=== PATIENT | female | born 1980 | race Caucasian/White ===

== ENCOUNTER → 2017-11-02 | Outpatient (CLI) | payer OTHER | LOC: BMCIMAGING 09:51 | PROVIDERS: ATTEND Family Medicine | DX: S82.445A Nondisplaced spiral fracture of shaft of left fibula, initial encounter for closed fracture (principal); M77.32 Calcaneal spur, left foot ==

== ENCOUNTER 2017-11-14 07:47 | Day surgery (SDC) | payer OTHER ==
[2017-11-14] MEDS ORDERED: BUPIVACAINE 0.25% 30 ML SDV ONE (07:50)
[2017-11-14] MEDS ORDERED: ceFAZolin 2 GM/DEXTROSE 100 ML IV ONE (08:04)
[2017-11-14] MEDS ORDERED: LR 1,000 ML IV ONE (08:05)
--- NOTE | 2017-11-14 08:15 | PDHPUP ---
History & Physical Update H&P update statement: This history and physical update is based on an assessment of the patient which was completed after admission or registration (within 24 hours), but prior to the surgery/procedure. H&P update: H&P reviewed & patient examined
[2017-11-14] MEDS ORDERED: MIDAZOLAM 2 MG/2 ML VIAL ONE (08:48)
[2017-11-14] MEDS ORDERED: PROPOFOL/EMULSION 500 MG/50 ML BOTTLE IV ONE (08:48)
[2017-11-14] MEDS ORDERED: fentaNYL 100 MCG/2 ML INJ ONE ×2 (08:48→09:58)
[2017-11-14] MEDS ORDERED: DEXAMETHASONE 4 MG/ML VIAL ONE (09:04)
[2017-11-14] MEDS ORDERED: KETOROLAC 30 MG/1 ML SDV ONE (09:04)
[2017-11-14] MEDS ORDERED: RANITIDINE 50 MG/2 ML VIAL ONE (09:04)
[2017-11-14] MEDS ORDERED: LIDOCAINE 2% 5 ML SDV ONE (09:04)
[2017-11-14] MEDS ORDERED: METOCLOPRAMIDE 10 MG/2 ML VIAL ONE (09:04)
[2017-11-14] MEDS ORDERED: ONDANSETRON 4 MG/2 ML VIAL ONE (09:04)
[2017-11-14] MEDS ORDERED: NALOXONE HCL 0.4 MG/ML INJ IVP PRN (09:22)
[2017-11-14] MEDS ORDERED: PROMETHAZINE HCL 25 MG/ML INJ IVP PRN (09:22)
[2017-11-14] MEDS ORDERED: LR 500 ML IV PRN (09:22)
[2017-11-14] MEDS ORDERED: DEXAMETHASONE 4 MG/ML VIAL IVP PRN (09:22)
[2017-11-14] MEDS ORDERED: ACETAMINOPHEN 500 MG TAB PO PRN (09:22)
[2017-11-14] MEDS ORDERED: fentaNYL 100 MCG/2 ML INJ IVP PRN (09:22)
[2017-11-14] MEDS ORDERED: ONDANSETRON 4 MG/2 ML VIAL IVP PRN ×2 (09:22→10:43)
[2017-11-14] MEDS ORDERED: METOCLOPRAMIDE 10 MG/2 ML VIAL IVP PRN (09:22)
[2017-11-14] MEDS ORDERED: HYDROCODONE/APAP 5/325 TAB PO PRN (09:22)
--- NOTE | 2017-11-14 09:22 | PDANEPAE ---
ANE Past Medical History - Pulmonary History Hx Sleep Apnea: No ANE Review of Systems Review of Systems: ANE Patient History - Allergies Allergies/Adverse Reactions: No Known Allergies Allergy (Unverified 11/11/17 16:54) - Home Medications Home Medications: Fleming 5/325 (*) 11/14/17 [Last Taken 11/13/17 23:55] - NPO status NPO Since - Liquids (Date): 11/13/17 NPO Since - Liquids (Time): 23:55 NPO Since - Solids (Date): 11/13/17 NPO Since - Solids (Time): 16:30 ANE Labs/Vital Signs - Vital Signs Blood Pressure: 134/95 Heart Rate: 90 Respiratory Rate: 16 O2 Sat (%): 94 Height: 162.56 cm Weight: 86.183 kg ANE Physical Exam - Airway Neck exam: FROM Mallampati Score: Class 1 Mouth exam: normal dental/mouth exam - Pulmonary Pulmonary: no respiratory distress, no rales or rhonchi, clear to auscultation - Cardiovascular Cardiovascular: regular rate and rhythym, no murmur, rub, or gallop - ASA Status ASA Status: I ANE Anesthesia Plan Anesthesia Plan: GA w LMA
--- NOTE | 2017-11-14 10:42 | SUROPNOTE ---
[facility] Operative Report - Surgery surgeon: Eron Tai DPM postop dx: bimalleolar fx left procedure ORIF left ankle, syndes repair anesth: gen hemostasis: 67 min at 250mmHg, left PTT ebl: scant materials: see dictation
[2017-11-14] MEDS ORDERED: ONDANSETRON DISINTEGRATING 4 MG TAB PO PRN (10:43)
[2017-11-14] MEDS ORDERED: OXYCODONE/APAP 5/325 TAB PO PRN (10:43)
[2017-11-14] MEDS ORDERED: oxyCODONE IR 5 MG TAB ONE ×2 (10:52→11:50)
[2017-11-14] MEDS: oxyCODONE IR 5 MG TAB PO PRN ×2 (10:53→11:50)
--- NOTE | 2017-11-14 11:26 | GOP ---
[f rep st] OPERATIVE REPORT DATE OF OPERATION: 11/14/2017 SURGEON: Eron Tai DPM CHANGE ROOM ATTENDANT: None. ANESTHESIA: General. PREOPERATIVE DIAGNOSIS: 1. Bimalleolar left ankle fracture. 2. Syndesmotic ligament disruption, left ankle. POSTOPERATIVE DIAGNOSIS: 1. Bimalleolar left ankle fracture. 2. Syndesmotic ligament disruption, left ankle. PROCEDURE PERFORMED: 1. ORIF of left ankle bimalleolar fracture. 2. Repair of the syndesmotic ligament with internal fixation. FINDINGS: ESTIMATED BLOOD LOSS: Scant. DESCRIPTION OF PROCEDURE: Under mild sedation, the patient was brought to the operating room, placed on the operating table in a supine position. Following infiltration of 2 g of IV Ancef and inductio n of general anesthesia via laryngeal mask airway, a non-sterile pneumatic thigh tourniquet was place d about the patient's well-padded left thigh. An ipsilateral hip bump was then placed to reduce the amount of external rotation to the left lower extremity. At this time, 30 cc of 0.25% Marcaine plain was infiltrated about the patient's left ankle in a regional circumferential block. The foot was th en scrubbed, prepped, and draped in the usual aseptic manner. An Esmarch bandage was utilized to exs anguinate the patient's left lower extremity and the tourniquet was inflated to 250 mmHg. Attention was then directed to the area overlying the distal fibula where a 10 cm linear longitudinal incision was made in line with the long axis of the fibula. The incision was deepened via sharp and blunt dissection care being taken to identify and retract all vital neural and vascular structures. All bleeders were ligated and cauterized as necessary. A periosteal incision was made in line with the skin incision and soft tissue structures reflected anterior and posteriorly thus exposing the fib toney. The long spiral oblique fracture of the distal fibula was identified and any remaining hematoma was evacuated with suction and lavage as well as the use of a curette. At this time, the ankle frac ture and mortise were reduced and held in place with a lobster clamp bone reduction forceps. A 3 mm x 18 mm cortical lag screw was placed across the fracture site using standard AO principles and techn iques. Validation of the screw showed excellent compression. Interoperative fluoroscopy noted compl ete and excellent reduction of the distal fibular fracture. At this time, a 5 hole Arthrex contoured distal lateral fibular plate was then placed and held in place with a combination of proximal cortic al screws and distal locking screws. At this time, a large syndesmotic reduction forceps was used to close the medial gutter. This was checked again under intraoperative fluoroscopy and noted to be ex cellent. At this time, an Arthrex knotless tight rope was placed across the syndesmosis after 4 anthony ical drilling with a 2 mm drill. The knotless tight rope was then tightened completely by hand and c hecked under intraoperative fluoroscopy after releasing the large syndesmotic reduction forceps. Fin al fluoroscopic imaging was taken. The wound was flushed with copious amounts of sterile normal sali ne and closed in layers. Periosteal structures were closed with a 2-0 Vicryl. The subcutaneous tiss ues were closed with a 3-0 Monocryl and the skin was closed with a running baseball-type suture of 3- 0 Prolene. On the medial aspect the puncture wound from the reduction forceps was also closed with a simple 3-0 interrupted Prolene suture. The wound was then dressed with Xeroform and a sterile compr essive dressing consisting of 4x4s and Shanti. A light Coban wrap was also applied. The tourniquet w as dropped at 67 minutes and a prompt hyperemic response was noted to all digits of the left foot. A well-padded posterior splint was then placed on the patient's left lower extremity with ankle at 90 degrees to allow for any postoperative edema as well as to hold the patient's ankle at the 90 degree angle. The patient tolerated the procedure and anesthesia well. She was transferred to the recovery room wi th vital signs stable and vascular status intact to all digits of the left foot. Following a period of postoperative monitoring, the patient will be discharged home with the following written and oral postop instructions. PATHOLOGY: None. HEMOSTASIS: Pneumatic thigh tourniquet at 250 mmHg for 67 minutes. MATERIALS: 3 mm x 18 mm cortex lag screw, a 5 hole left titanium locking distal lateral fibular plat e all from Arthrex, 3.5 x 14 mm cortex screws x3, a 3 x 12 mm locking screw, a 3 x 60 mm locking scre w and a 3 x 18 mm locking screw and then the syndesmotic repair is a knotless titanium tightrope x1. INJECTABLES: 60 cc of 0.25% Marcaine plain. COMPLICATIONS: None. INDICATIONS FOR PROCEDURE: Ms. Blanton is an otherwise healthy 37-year-old woman who presented to m y office 5 days ago after fracturing her left ankle on the 02 November 2017. The patient had significan t displacement and lateral translation of the left talus with increased medial clear space within the medial gutter as well as a disruption of the syndesmotic ligament. The patient understands that to reduce the certain risk of left ankle arthritis that open reduction internal fixation is indicated. The patient understands the risks, benefits, and alternatives to the proposed procedures and wishes t o proceed. The procedure in detail is as follows. DISCHARGE INSTRUCTIONS: 1. Keep dressing clean, dry, and intact. 2. Nonweightbearing at all times with knee scooter or crutches. Use caution while taking pain medic ation. All followup questions and concerns should be directed to [facility] at [phone]. /[id number]/MODL
[2017-11-14 12:14] VITALS: BP 137/86
--- NOTE | 2017-11-14 12:26 | POSTANESTH ---
Post Anesthetic Evaluation Cardiovascular Status: Normal, Stable, Similar to Pre-Op Cond Respiratory Status: Normal, Stable, Similar to Pre-op Cond. Level of Consciousness/Mental Status: Moderately Sleepy Pain Control: Adequate, Prn Tx Ordered Nausea/Vomiting Control: Adequate, Prn Tx Ordered Complications Possibly Related to Anesthesia: None Noted
== END 2017-11-14 12:40 | disposition home or self-care (01) ==
LOC: MERGE 07:47 → FSGY 07:47
PROVIDERS: ATTEND Podiatrist Foot & Ankle Surgery
PROC: 0QSH04Z Reposition Left Tibia with Internal Fixation Device, Open Approach (ICD-10-PCS; principal; 2017-11-14 08:30)
PROC: 0SSG04Z Reposition Left Ankle Joint with Internal Fixation Device, Open Approach (ICD-10-PCS; principal; 2017-11-14 08:30)
DX: S82.445A Nondisplaced spiral fracture of shaft of left fibula, initial encounter for closed fracture (principal); S93.432A Sprain of tibiofibular ligament of left ankle, initial encounter; W19.XXXA Unspecified fall, initial encounter
CPT/HCPCS: C1713; J0690; J1100; J1885; J2250; J2405; J2704; J2765; J2780; J3010

== ENCOUNTER → 2017-12-19 | Outpatient (CLI) | payer OTHER | LOC: BMCLAB 13:58 | PROVIDERS: ATTEND Podiatrist Foot & Ankle Surgery | DX: S82.445D Nondisplaced spiral fracture of shaft of left fibula, subsequent encounter for closed fracture with routine healing (principal); S93.432D Sprain of tibiofibular ligament of left ankle, subsequent encounter ==